=== PATIENT | female | born 1985 | race Asian ===

== ENCOUNTER 2021-02-01 10:46 | Emergency (ER) | payer BC ==
[~2021-02-01] VITALS: Ht 162.6 cm; Wt 61.2 kg
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
[2021-02-01] MEDS ORDERED: IBUP-1955 PO (12:24)
[2021-02-01] MEDS ORDERED: CYCL10TA9 PO (12:24)
[2021-02-01] MEDS ORDERED: IBUPROFEN 600 MG TABLET ONE (12:35)
[2021-02-01] MEDS: IBUPROFEN 600 MG TABLET PO ONE (12:41)
[2021-02-01 13:18] VITALS: BP 132/76
== END 2021-02-01 13:18 | disposition home or self-care (01) ==
LOC: ER 10:54
DX: S63.682A Other sprain of left thumb, initial encounter (principal); S70.02XA Contusion of left hip, initial encounter; S80.12XA Contusion of left lower leg, initial encounter; S00.531A Contusion of lip, initial encounter; V32.5XXA Driver of three-wheeled motor vehicle injured in collision with two- or three-wheeled motor vehicle in traffic accident, initial encounter; Y93.89 Activity, other specified; Y92.413 State road as the place of occurrence of the external cause; Y99.8 Other external cause status
CPT/HCPCS: 71045-TC; 73140-TC; 73502; 73590-TC